=== PATIENT | female | born 1995 | race African-American/Black ===

== ENCOUNTER 2020-03-22 17:39 | Emergency (ER) | payer OTHER ==
[~2020-03-22] VITALS: Ht 175.3 cm; Wt 105.7 kg
[2020-03-22 19:45] VITALS: BP 120/75
== END 2020-03-22 19:46 | disposition home or self-care (01) ==
LOC: ER 17:39
DX: S86.911A Strain of unspecified muscle(s) and tendon(s) at lower leg level, right leg, initial encounter (principal); X50.1XXA Overexertion from prolonged static or awkward postures, initial encounter; Y93.89 Activity, other specified; Y92.89 Other specified places as the place of occurrence of the external cause; Y99.8 Other external cause status

== ENCOUNTER 2020-07-28 19:31 | Emergency (ER) | payer OTHER ==
[~2020-07-28] VITALS: Ht 175.3 cm; Wt 108.9 kg
[2020-07-28 20:50] LABS: URINE BILIRUBIN NEGATIVE (Negative); URINE BLOOD 1+ (Negative); URINE CLARITY CLEAR; URINE COLOR YELLOW; URINE GLUCOSE-RANDOM* NEGATIVE (Negative); URINE KETONES NEGATIVE (Negative); URINE LEUKOCYTES-REFLEX NEGATIVE (Negative); URINE NITRITE-REFLEX NEGATIVE (Negative); URINE PROTEIN (DIPSTICK) NEGATIVE (Negative); URINE SPECIFIC GRAVITY >= 1.030 (1.005-1.035); URINE UROBILINOGEN 0.2 E.U./dl (0.2-1.0)
[2020-07-28 21:06] LABS: ABSOLUTE NEUTROPHILS 2.1 thou/uL (1.4-8.2); BASOPHILS 0.3 % (0.0-2.0); EOSINOPHILS 2.8 % (0.0-3.0); HEMATOCRIT 38.2 % (37.0-47.0); HEMOGLOBIN 12.5 gm/dL (12.0-15.0); MCH 29.7 pg (26.0-34.0); MCHC 32.8 g/dL (28.0-37.0); MCV 90.7 fL (80.0-100.0); MONOCYTES 7.8 % (1.0-8.0); PLATELET COUNT 206 thou/uL (150-400); POLYS 38.1 % (36.0-66.0); RBC 4.21 mil/uL (4.20-5.00); RDW 14.2 % (10.5-14.5); WBC 5.4 thou/uL (4.0-11.0)
[2020-07-28 21:11] LABS: BACTERIA-REFLEX 1-9 Few /HPF (None Seen); SQUAMOUS 0-3 Few /LPF (0-3); URINE RBC 3-10 Few /HPF (0-2); URINE WBC-REFLEX 0-5 Rare /HPF (0-5)
[2020-07-28 21:12] LABS: CASTS None Seen /LPF (None Seen); CRYSTALS None Seen /LPF (None Seen); MUCUS 4-6 Moderate strn/LPF (None Seen)
[2020-07-28 21:33] VITALS: BP 119/68
== END 2020-07-28 21:33 | disposition home or self-care (01) ==
LOC: ER 19:31
PROVIDERS: Emergency Medicine; Physician Assistant
DX: K64.4 Residual hemorrhoidal skin tags (principal)

== ENCOUNTER 2021-06-19 08:59 | Emergency (ER) | payer OTHER ==
[~2021-06-19] VITALS: Ht 175.3 cm; Wt 115.2 kg
[2021-06-19 09:11] VITALS: BP 105/54
== END 2021-06-19 09:43 | disposition home or self-care (01) ==
LOC: ER 08:59
DX: L50.9 Urticaria, unspecified (principal)